=== PATIENT | female | born 1980 | race Caucasian/White ===

== ENCOUNTER 2018-10-22 22:28 | Emergency (ER) | payer OTHER, SELFPAY ==
--- NOTE | 2018-10-22 23:41 | RAD ---
Right knee 4 views HISTORY: Right knee injury. FINDINGS: Joint spaces are preserved. Mild osteophytosis. No acute fracture, dislocation, or fluid di stention of the suprapatellar bursa are apparent. IMPRESSION: No acute osseous abnormalities are demonstrated.
== END 2018-10-22 23:49 | disposition home or self-care (01) ==
LOC: ERS 22:28
DX: M25.561 Pain in right knee (principal); G40.909 Epilepsy, unspecified, not intractable, without status epilepticus; W19.XXXA Unspecified fall, initial encounter

== ENCOUNTER 2019-08-17 14:07 | Emergency (ER) | payer OTHER ==
[2019-08-17] MEDS ORDERED: Lidocaine 1% w/Epinephrine 1:100K 20 ML VIAL ONE (14:58)
== END 2019-08-17 15:53 | disposition home or self-care (01) ==
LOC: ERS 14:07
DX: S01.01XA Laceration without foreign body of scalp, initial encounter (principal); F32.9 Major depressive disorder, single episode, unspecified; G40.909 Epilepsy, unspecified, not intractable, without status epilepticus; Z79.899 Other long term (current) drug therapy; Y04.0XXA Assault by unarmed brawl or fight, initial encounter
CPT/HCPCS: 12001

== ENCOUNTER 2019-08-18 15:23 | Emergency (ER) | payer OTHER ==
[2019-08-19 15:40] LABS: SARS-CoV-2 MS2 Positive; SARS-CoV-2 N Gene Negative; SARS-CoV-2 S Gene Negative; SARS-CoV-2 orf1ab Negative
== END 2019-08-18 16:30 | disposition home or self-care (01) ==
LOC: ERS 15:23
DX: Z20.828 Contact with and (suspected) exposure to other viral communicable diseases (principal); F32.9 Major depressive disorder, single episode, unspecified; G40.909 Epilepsy, unspecified, not intractable, without status epilepticus
CPT/HCPCS: 87635; 99283; U0003

== ENCOUNTER 2019-08-25 09:20 | Emergency (ER) | payer OTHER | END 2019-08-25 09:42 | disposition home or self-care (01) | LOC: ERS 09:20 | DX: S01.01XD Laceration without foreign body of scalp, subsequent encounter (principal); X58.XXXD Exposure to other specified factors, subsequent encounter ==

== ENCOUNTER 2021-06-13 14:15 | Emergency (ER) | payer OTHER ==
[2021-06-13] MEDS ORDERED: Acetaminophen 500 MG TAB ONE ×2 (15:43)
== END 2021-06-13 16:25 | disposition home or self-care (01) ==
LOC: ERS 14:15
DX: S09.90XA Unspecified injury of head, initial encounter (principal); Y04.0XXA Assault by unarmed brawl or fight, initial encounter; Y92.009 Unspecified place in unspecified non-institutional (private) residence as the place of occurrence of the external cause
CPT/HCPCS: 70450

== ENCOUNTER 2021-11-30 08:48 | Emergency (ER) | payer OTHER ==
[2021-11-30] MEDS ORDERED: Boostrix 0.5 ML (Tdap) VIAL (>/=7 yrs of age) ONE (10:02)
== END 2021-11-30 10:21 | disposition home or self-care (01) ==
LOC: ERS 08:48
DX: S01.81XA Laceration without foreign body of other part of head, initial encounter (principal); M25.572 Pain in left ankle and joints of left foot; Z23 Encounter for immunization; W18.2XXA Fall in (into) shower or empty bathtub, initial encounter; Y93.E1 Activity, personal bathing and showering; Y92.002 Bathroom of unspecified non-institutional (private) residence as the place of occurrence of the external cause
CPT/HCPCS: 12013; 71045; 90471; 90715

== ENCOUNTER 2022-03-27 18:02 | Emergency (ER) | payer OTHER ==
[2022-03-27 18:58] LABS: #Eosinphils 0.4 thou/uL (0.0-0.7); #Lymphocytes 1.8 thou/uL (1.20-3.40); #Monocytes 0.6 thou/uL (0.11-0.59); #Neutrophils 4.3 thou/uL (1.40-6.50); %Basophils 0.5 % (0.0-1.0); %Eosinophils 5.8 % (0.0-10.0); %Monocytes 8.6 % (0.0-10.0); %Neutrophils 60.1 % (42.0-75.0); Hemoglobin 12.8 g/dL (12.0-16.0); Mean Corpuscular Hemoglobin 30.3 pg (27.0-31.0); Mean Corpuscular Volume 91.8 fl (78.0-98.0); Mean Platelet Volume 7.5 fL (7.4-10.4); Platelet Count 256 10x3/uL (130-400); RBC Distribution Width 11.5 % (11.5-14.5); Red Blood Cell (RBC) Count 4.22 mill/uL (4.20-5.40); White Blood Cell (WBC) Count 7.1 10x3/uL (4.8-10.8)
[2022-03-27 19:02] LABS: BHCG - Serum Negative (NEGATIVE); Pregs Control Background? CLEAR/WHITE (CLR/WHITE); Pregs Control Bar Appear? YES (CONTROL BAR)
[2022-03-27 19:22] LABS: ALT (SGPT) 15 U/L (8-55); AST (SGOT) 19 U/L (5-34); Albumin 3.8 g/dL (3.5-5.0); Alkaline Phosphatase 102 U/L (40-110); Anion Gap 11 mmol/L (10-20); BUN (Urea Nitrogen) 19 mg/dL (7.0-18.7); Bilirubin, Total 0.2 mg/dL (0.2-1.2); Calc. Creatinine Clearance 0 mL/min (70-130); Carbon Dioxide 24 mmol/L (22-29); Chloride 105 mmol/L (98-107); Estimated GFR 100; Globulin 3.6 g/dL (2.4-3.5); Glucose 96 mg/dL (70-105); Protein, Total 7.4 g/dL (6.0-8.3); Sodium 136 mmol/L (136-145)
== END 2022-03-27 20:20 | disposition left against medical advice (07) ==
LOC: ERS 18:02
DX: Z53.21 Procedure and treatment not carried out due to patient leaving prior to being seen by health care provider (principal)
CPT/HCPCS: 36415; 80053; 84703; 85025

== ENCOUNTER 2022-10-09 10:11 | Emergency (ER) | payer OTHER ==
[2022-10-09] MEDS ORDERED: Ketorolac Tromethamine 30 MG/ML VIAL ONE (11:03)
[2022-10-09] MEDS ORDERED: Ondansetron ODT 4 MG TAB ONE (11:03)
[2022-10-09] MEDS ORDERED: Acetaminophen 500 MG TAB ONE (11:03)
== END 2022-10-09 12:07 | disposition home or self-care (01) ==
LOC: ERS 10:11
DX: S09.90XA Unspecified injury of head, initial encounter (principal); W22.8XXA Striking against or struck by other objects, initial encounter
CPT/HCPCS: 96372; 99282; J1885; Q0162

== ENCOUNTER 2022-10-17 12:19 | Emergency (ER) | payer OTHER ==
[2022-10-17 13:35] LABS: #Eosinphils 0.4 thou/uL (0.0-0.7); #Monocytes 0.6 thou/uL (0.11-0.59); #Neutrophils 4.9 thou/uL (1.40-6.50); %Basophils 0.4 % (0.0-1.0); %Eosinophils 5.6 % (0.0-10.0); %Lymphocytes 21.8 % (21.0-51.0); %Monocytes 7.9 % (0.0-10.0); Hematocrit 39.5 % (36.0-47.0); Hemoglobin 12.7 g/dL (12.0-16.0); Mean Corpuscular HGB CONC 32.2 g/dL (32.0-36.0); Mean Corpuscular Hemoglobin 29.6 pg (27.0-31.0); Mean Corpuscular Volume 92.1 fl (78.0-98.0); Mean Platelet Volume 9.4 fL (7.4-10.4); Platelet Count 259 10x3/uL (130-400); RBC Distribution Width 12.4 % (11.5-14.5); Red Blood Cell (RBC) Count 4.29 mill/uL (4.20-5.40); White Blood Cell (WBC) Count 7.7 10x3/uL (4.8-10.8)
[2022-10-17 13:55] LABS: ALT (SGPT) 14 U/L (8-55); AST (SGOT) 19 U/L (5-34); Albumin 3.8 g/dL (3.5-5.0); Alkaline Phosphatase 109 U/L (40-110); Anion Gap 14 mmol/L (10-20); BUN (Urea Nitrogen) 14 mg/dL (7.0-18.7); Bilirubin, Total 0.2 mg/dL (0.2-1.2); Calc. Creatinine Clearance 0 mL/min (70-130); Calcium 8.9 mg/dL (7.8-10.44); Carbon Dioxide 25 mmol/L (22-29); Chloride 106 mmol/L (98-107); Estimated GFR 46; Globulin 3.3 g/dL (2.4-3.5); Glucose 86 mg/dL (70-105); Potassium 4.6 mmol/L (3.5-5.1); Protein, Total 7.1 g/dL (6.0-8.3)
[2022-10-17 14:15] LABS: Sodium 140 mmol/L (136-145)
[2022-10-17] MEDS ORDERED: Methocarbamol 500 MG TAB PO SCH (14:45)
[2022-10-17 14:59] LABS: Bilirubin Negative (Negative); Blood, Urine Trace (Negative); CAUTI Indications for Culture Pelvic or flank pain; Clarity Clear (Clear); Glucose, Urine (Dipstick) Normal (Negative); Ketone, Urine Negative (Negative); Leukocyte 25 Leu/uL (Negative); Nitrite Negative (Negative); Protein, Urine (Dipstick) 30 mg/dL (Neg-Trace); Specific Gravity, Urine 1.039 (1.002-1.036); Urobilinogen Normal mg/dL (Less than 2)
[2022-10-17 15:00] LABS: Pregnancy Test - Urine (BHCG) Negative (Negative); Pregu Control Background? CLEAR/WHITE (CLR/WHITE); Pregu Control Bar Appear? YES (CONTROL BAR); Specific Gravity 1.039 (1.002-1.036)
[2022-10-17 15:14] LABS: Bacteria/HPF 1+ HPF (None Seen)
[2022-10-17 15:15] LABS: Urine Culture Reflex No No
== END 2022-10-17 15:16 | disposition left against medical advice (07) ==
LOC: ERS 12:19
DX: S30.1XXA Contusion of abdominal wall, initial encounter (principal)
CPT/HCPCS: 36415; 74176; 80053; 81001; 81025; 85025

== ENCOUNTER 2022-10-28 10:38 | Emergency (ER) | payer OTHER ==
[2022-10-28] MEDS ORDERED: Ondansetron PF 4 MG/2 ML Vial ONE (10:42)
[2022-10-28 10:58] LABS: #Eosinphils 0.4 thou/uL (0.0-0.7); #Monocytes 0.5 thou/uL (0.11-0.59); #Neutrophils 4.1 thou/uL (1.40-6.50); %Basophils 0.3 % (0.0-1.0); %Eosinophils 6.4 % (0.0-10.0); %Lymphocytes 23.2 % (21.0-51.0); %Monocytes 8.1 % (0.0-10.0); %Neutrophils 61.7 % (42.0-75.0); Hematocrit 37.7 % (36.0-47.0); Mean Corpuscular HGB CONC 31.8 g/dL (32.0-36.0); Mean Corpuscular Volume 91.1 fl (78.0-98.0); Mean Platelet Volume 9.2 fL (7.4-10.4); Platelet Count 255 10x3/uL (130-400); RBC Distribution Width 12.4 % (11.5-14.5); Red Blood Cell (RBC) Count 4.14 mill/uL (4.20-5.40); White Blood Cell (WBC) Count 6.7 10x3/uL (4.8-10.8)
[2022-10-28 11:07] LABS: BHCG - Serum Negative (NEGATIVE); Pregs Control Background? CLEAR/WHITE (CLR/WHITE); Pregs Control Bar Appear? YES (CONTROL BAR)
[2022-10-28 11:23] LABS: ALT (SGPT) 12 U/L (8-55); AST (SGOT) 16 U/L (5-34); Albumin 3.5 g/dL (3.5-5.0); Alkaline Phosphatase 105 U/L (40-110); Anion Gap 10 mmol/L (10-20); BUN (Urea Nitrogen) 17 mg/dL (7.0-18.7); Bilirubin, Total 0.3 mg/dL (0.2-1.2); Calc. Creatinine Clearance 0 mL/min (70-130); Calcium 8.8 mg/dL (7.8-10.44); Carbon Dioxide 24 mmol/L (22-29); Chloride 108 mmol/L (98-107); Estimated GFR 85; Globulin 3.3 g/dL (2.4-3.5); Glucose 107 mg/dL (70-105); Potassium 3.8 mmol/L (3.5-5.1); Protein, Total 6.8 g/dL (6.0-8.3); Sodium 138 mmol/L (136-145)
[2022-10-28 11:24] LABS: Acetaminophen Less than 10 mcg/mL (10.0-30.0); Alcohol Less than 10.0 mg/dL (Less than 10); Salicylate Less than 8.0 mg/dL (15.0-30.0)
[2022-10-28 11:26] LABS: Troponin I Less than 0.010 ng/mL (< 0.028)
== END 2022-10-28 13:40 | disposition home or self-care (01) ==
LOC: ERS 10:38
DX: R56.9 Unspecified convulsions (principal)
CPT/HCPCS: 36415; 80053; 80307; 83605; 83735; 84484; 84703; 85025; 93005; 96374; J2405

== ENCOUNTER 2023-06-28 19:03 | Emergency (ER) | payer OTHER | END 2023-06-28 19:36 | disposition home or self-care (01) | LOC: ERS 19:03 | DX: G40.909 Epilepsy, unspecified, not intractable, without status epilepticus (principal); Z79.899 Other long term (current) drug therapy | CPT/HCPCS: 93005 ==

== ENCOUNTER 2023-11-21 10:44 | Outpatient (CLI) | payer OTHER ==
[2023-11-21 12:47] LABS: INR-International Normal Ratio 1.1; Prothrombin Time 13.8 sec (12.0-14.7)
[2023-11-21 12:48] LABS: BHCG - Serum Negative (NEGATIVE); PTT 27.6 sec (22.9-36.1); Pregs Control Background? CLEAR/WHITE (CLR/WHITE); Pregs Control Bar Appear? YES (CONTROL BAR)
[2023-11-21 13:44] LABS: #Basophils Less than 0.03 10x3/uL (0.0-0.2); %Basophils 0.2 % (0.0-1.0); %Lymphocytes 30.9 % (21.0-51.0); %Monocytes 15.2 % (0.0-10.0); %Neutrophils 46.7 % (42.0-75.0); Hematocrit 38.8 % (36.0-47.0); Hemoglobin 12.5 g/dL (12.0-16.0); Mean Corpuscular HGB CONC 32.2 g/dL (32.0-36.0); Mean Corpuscular Hemoglobin 31.3 pg (27.0-31.0); Mean Platelet Volume 10.4 fL (7.4-10.4); Platelet Adequacy Comment Platelets Decreased; Platelet Count 107 10x3/uL (130-400); RBC Distribution Width 13.7 % (11.5-14.5); RBC Morphology Within Normal Limits
== END 2023-11-21 10:45 | disposition home or self-care (01) ==
LOC: LABBT 10:44
PROVIDERS: ATTEND Neurological Surgery
DX: Z01.812 Encounter for preprocedural laboratory examination (principal); D32.9 Benign neoplasm of meninges, unspecified
CPT/HCPCS: 84703; 85025; 85610; 85730

== ENCOUNTER 2023-12-29 20:43 | Emergency (ER) | payer OTHER ==
[2023-12-29] MEDS ORDERED: Lidocaine 1% PF 5 ML VIAL ONE (22:02)
[2023-12-29] MEDS ORDERED: Lidocaine/Transparent Dressing 1 EACH KIT ONE (22:02)
== END 2023-12-29 23:20 | disposition home or self-care (01) ==
LOC: ERS 20:43
DX: S01.81XA Laceration without foreign body of other part of head, initial encounter (principal); W18.2XXA Fall in (into) shower or empty bathtub, initial encounter
CPT/HCPCS: 12011; 99282

== ENCOUNTER 2023-12-31 13:58 | Inpatient (IN) | payer OTHER ==
[2023-12-31] MEDS ORDERED: Milk Of Magnesia 30 ML UDCUP PO PRN (18:00)
[2023-12-31] MEDS ORDERED: Promethazine HCl 6.25 MG/5 ML Syrup PO PRN (18:00)
[2023-12-31 20:07] LABS: #Basophils Less than 0.03 10x3/uL (0.0-0.2); %Basophils 0.2 % (0.0-1.0); %Eosinophils 4.4 % (0.0-10.0); %Lymphocytes 23.7 % (21.0-51.0); %Neutrophils 60.5 % (42.0-75.0); Hematocrit 35.1 % (36.0-47.0); Hemoglobin 11.4 g/dL (12.0-16.0); Mean Corpuscular HGB CONC 32.5 g/dL (32.0-36.0); Mean Corpuscular Hemoglobin 32.6 pg (27.0-31.0); Mean Corpuscular Volume 100.3 fL (78.0-98.0); Mean Platelet Volume 10.5 fL (7.4-10.4); Platelet Count 116 10x3/uL (130-400); RBC Distribution Width 12.4 % (11.5-14.5)
[2023-12-31 20:21] LABS: Anion Gap 12 mmol/L (10-20); BUN (Urea Nitrogen) 19 mg/dL (7.0-18.7); Calc. Creatinine Clearance 106 mL/min (70-130); Calcium 8.1 mg/dL (7.8-10.44); Carbon Dioxide 24 mmol/L (22-29); Chloride 106 mmol/L (98-107); Estimated GFR 90; Glucose 160 mg/dL (70-105); Potassium 3.8 mmol/L (3.5-5.1); Sodium 138 mmol/L (136-145)
[2023-12-31 20:22] LABS: INR-International Normal Ratio 1.1; Prothrombin Time 14.3 sec (12.0-14.7)
[2023-12-31 20:23] LABS: PTT 26.3 sec (22.9-36.1)
[2023-12-31] MEDS: levETIRAcetam 500 MG TAB PO SCH (20:36)
[2023-12-31] MEDS: Nitrofurantoin Monohyd/M-Cryst 100 MG CAP PO SCH (20:36)
[2023-12-31] MEDS: Lacosamide 50 mg Tablet PO SCH (20:36)
[2023-12-31] MEDS: Divalproex Sodium DR 500 MG TAB PO SCH (20:36)
[2023-12-31] MEDS: QUEtiapine 100 MG TAB PO SCH (20:40)
[2023-12-31] MEDS: Acetaminophen 325 MG TAB PO PRN (20:41)
[2023-12-31] MEDS: Citalopram 20 MG TAB PO SCH (20:41)
[2023-12-31] MEDS ORDERED: Docusate 100 MG CAP PO PRN (21:00)
[2024-01-01] MEDS: Cyproheptadine 4 MG TAB PO SCH (00:34)
[2024-01-01] MEDS ORDERED: EPINEPHrine 1 MG/ML VIAL ONE (06:33)
[2024-01-01] MEDS ORDERED: Bacitracin Zinc Ointment 30 gm TUBE ONE (06:34)
[2024-01-01] MEDS ORDERED: Lidocaine 1% (PF) 30 ML VIAL ONE (06:34)
[2024-01-01] MEDS ORDERED: Vancomycin 1 GM VIAL ONE (06:34)
[2024-01-01] MEDS ORDERED: Thrombin 5000 UNITS/5 ML VIAL ONE (06:35)
[2024-01-01] MEDS ORDERED: Lidocaine 1% PF 5 ML VIAL ONE (06:38)
[2024-01-01] MEDS ORDERED: fentaNYL PF 100 MCG/2 ML SYRINGE ONE ×2 (06:38→09:00)
[2024-01-01] MEDS ORDERED: PROPOFOL 20 ML ONE ×2 (06:38→08:12)
[2024-01-01] MEDS ORDERED: Rocuronium Bromide 10 MG/ML (10ML VIAL) ONE ×3 (06:38→11:31)
[2024-01-01] MEDS ORDERED: CEFAZOLIN 2 GM VIAL ONE (07:12)
[2024-01-01] MEDS ORDERED: levETIRAcetam 500 MG (5 mL) VIAL ONE (07:14)
[2024-01-01] MEDS ORDERED: hydrALAZINE 20 MG/ML VIAL SLOW IVP PRN (07:35)
[2024-01-01] MEDS ORDERED: Benzocaine/Menthol 1 LOZ LOZ PO PRN (07:35)
[2024-01-01] MEDS ORDERED: Mag-Al 1200 mg/1200 mg/30 ML UDCUP PO PRN (07:35)
[2024-01-01] MEDS ORDERED: Labetalol HCl 100 MG/20 ML VIAL SLOW IVP PRN (07:35)
[2024-01-01] MEDS ORDERED: diphenhydrAMINE 50 MG/ML VIAL IVP PRN (07:35)
[2024-01-01] MEDS ORDERED: Promethazine HCl 25 MG/ML VIAL IM PRN ×2 (07:35→13:33)
[2024-01-01] MEDS ORDERED: Sodium Chloride 0.9% 100 ML ONE (08:34)
[2024-01-01] MEDS ORDERED: Phenylephrine 10 MG/ML VIAL ONE ×2 (08:34→11:16)
[2024-01-01] MEDS: Pantoprazole DR 40 MG TAB PO SCH (10:20)
[2024-01-01] MEDS: Ferrous Sulfate 325 MG TAB PO SCH (10:20)
[2024-01-01] MEDS: Sodium Chloride 0.9% 1,000 ML IV SCH (10:20)
[2024-01-01] MEDS ORDERED: Dexmedetomidine 200 MCG/2 ML VIAL ONE (12:08)
[2024-01-01] MEDS ORDERED: CEFAZOLIN 1 GM VIAL ONE (12:10)
[2024-01-01] MEDS ORDERED: Ondansetron PF 4 MG/2 ML Vial ONE (12:14)
[2024-01-01] MEDS ORDERED: Dexamethasone 4 mg/ml Vial ONE (12:15)
[2024-01-01 12:42] LABS: Actual Bicarbonate (HCO3a) 22.1 mEq/L (22-28); Analyzer IN Cardio OR; Base Excess (BEa) -1.8 mEq/L (-2.0 to +3.0); CO2 Tension 34.5 mmHg (35.0-45.0); Calcium, Ionized (arterial) 1.13 mmol/L (1.12-1.30); Carboxyhemoglobin (COHb) 0.3 gm% (0.0-3.0); Hematocrit-ABG 36 % (36.0-47.0); Hemoglobin (Hb) 12.1 g/dL (12.0-16.0); O2 Tension (PaO2), arterial 322.3 mmHg (80.0-100.0); Potassium - ABG Lab 3.32 mmol/L (3.70-5.30); Puncture Site Arterial Line; pH, Arterial 7.424 (7.35-7.45)
[2024-01-01] MEDS ORDERED: SUGAMMADEX SODIUM 200 MG/2 ML VIAL ONE (12:45)
[2024-01-01] MEDS ORDERED: Ondansetron HCl/PF 4 MG/2 ML Vial IVP PRN (13:33)
[2024-01-01] MEDS: Ondansetron PF 4 MG/2 ML Vial IVP PRN (15:47)
[2024-01-01] MEDS: CEFAZOLIN 2 GM in Sodium Chloride 0.9% 100 ML IVPB SCH (15:47)
[2024-01-01] MEDS: Morphine 2 MG/ML VIAL SLOW IVP PRN (15:56)
[2024-01-01] MEDS: Ondansetron PF 4 MG/2 ML Vial IVP SCH (16:30)
[2024-01-01] MEDS: Promethazine HCl 25 MG/ML VIAL IM PRN (19:31)
[2024-01-01] MEDS: hydrALAZINE 20 MG/ML VIAL SLOW IVP PRN (20:36)
[2024-01-01] MEDS: Labetalol HCl 100 MG/20 ML VIAL SLOW IVP PRN (21:24)
[2024-01-01] MEDS: levETIRAcetam 500 MG (5 mL) VIAL SLOW IVP SCH (22:18)
[2024-01-02] MEDS: Ondansetron PF 4 MG/2 ML Vial IVP PRN (07:28)
[2024-01-02] MEDS: HYDROcodone/Acetaminophen 7.5/325 mg Tablet PO PRN (09:35)
[2024-01-02] MEDS: Sodium Chloride 0.9% 1,000 ML IV SCH ×2 (16:08→16:22)
[2024-01-02 17:25] LABS: Lactic Acid 2.71 mmol/L (0.5-2.2)
[2024-01-02 17:31] LABS: ALT (SGPT) 8 U/L (8-55); AST (SGOT) 16 U/L (5-34); Alkaline Phosphatase 45 U/L (40-110); Anion Gap 10 mmol/L (10-20); BUN (Urea Nitrogen) 7 mg/dL (7.0-18.7); Bilirubin, Total 0.4 mg/dL (0.2-1.2); Calc. Creatinine Clearance 126 mL/min (70-130); Calcium 7.2 mg/dL (7.8-10.44); Carbon Dioxide 24 mmol/L (22-29); Chloride 110 mmol/L (98-107); Estimated GFR 111; Globulin 2.4 g/dL (2.4-3.5); Glucose 126 mg/dL (70-105); Potassium 3.6 mmol/L (3.5-5.1); Protein, Total 4.4 g/dL (6.0-8.3); Sodium 140 mmol/L (136-145)
[2024-01-02 17:42] LABS: #Basophils Less than 0.03 10x3/uL (0.0-0.2); #Eosinophils Less than 0.03 10x3/uL (0.0-0.7); %Basophils 0.1 % (0.0-1.0); %Eosinophils 0.1 % (0.0-10.0); %Lymphocytes 12.4 % (21.0-51.0); %Monocytes 17.7 % (0.0-10.0); %Neutrophils 69.3 % (42.0-75.0); Hematocrit 24.6 % (36.0-47.0); Hemoglobin 7.9 g/dL (12.0-16.0); Mean Corpuscular HGB CONC 32.1 g/dL (32.0-36.0); Mean Corpuscular Hemoglobin 32.2 pg (27.0-31.0); Mean Corpuscular Volume 100.4 fL (78.0-98.0); Mean Platelet Volume 10.2 fL (7.4-10.4); Platelet Count 92 10x3/uL (130-400); RBC Distribution Width 12.2 % (11.5-14.5); Red Blood Cell (RBC) Count 2.45 mill/uL (4.20-5.40)
[2024-01-02 18:05] LABS: Hypochromia SLIGHT = 6-15 cells HPF (0-5); Macrocytosis SLIGHT = 6-15 cells HPF (0-5); Platelet Adequacy Comment Platelets Decreased; Polychromasia SLIGHT = 2-3 cells HPF (0-2)
[2024-01-02] MEDS: Vancomycin (BATCH) 2 GM in Premix 1 BAG IVPB SCH (18:13)
[2024-01-02 18:17] LABS: Bacteria/HPF None Seen HPF (None Seen); Bilirubin Negative (Negative); Blood, Urine Negative (Negative); Clarity Clear (Clear); Glucose, Urine (Dipstick) Normal (Negative); Ketone, Urine Negative (Negative); Leukocyte 75 Leu/uL (Negative); Nitrite Negative (Negative); Protein, Urine (Dipstick) Negative (Neg-Trace); RBC/HPF 0-3 HPF (0-3); Specific Gravity, Urine 1.004 (1.002-1.036); Squamous Epithelial None Seen HPF (0-3); pH, Urine 6.5 (5.0-9.0)
[2024-01-02] MEDS: Cefepime 2 GM in Sodium Chloride 0.9% 100 ML IVPB SCH (19:36)
[2024-01-02] MEDS: Potassium Chloride 20 MEQ in Lactated Ringer's 1,000 ML IV SCH (22:25)
[2024-01-03 04:11] LABS: #Basophils Less than 0.03 10x3/uL (0.0-0.2); #Eosinophils Less than 0.03 10x3/uL (0.0-0.7); %Basophils 0.2 % (0.0-1.0); %Eosinophils 0.1 % (0.0-10.0); %Lymphocytes 11.6 % (21.0-51.0); %Monocytes 14.4 % (0.0-10.0); %Neutrophils 73.2 % (42.0-75.0); Hemoglobin 8.1 g/dL (12.0-16.0); Mean Corpuscular HGB CONC 32.4 g/dL (32.0-36.0); Mean Corpuscular Hemoglobin 32.4 pg (27.0-31.0); Mean Platelet Volume 10.2 fL (7.4-10.4); Platelet Count 94 10x3/uL (130-400); RBC Distribution Width 12.2 % (11.5-14.5)
[2024-01-03 04:27] LABS: Anion Gap 8 mmol/L (10-20); BUN (Urea Nitrogen) 5 mg/dL (7.0-18.7); Calc. Creatinine Clearance 126 mL/min (70-130); Calcium 7.6 mg/dL (7.8-10.44); Carbon Dioxide 24 mmol/L (22-29); Chloride 108 mmol/L (98-107); Estimated GFR 113; Glucose 125 mg/dL (70-105); Potassium 3.7 mmol/L (3.5-5.1); Sodium 136 mmol/L (136-145); Vancomycin, Trough 16.4 ug/mL
[2024-01-03] MEDS: Vancomycin HCl 750 MG in Sodium Chloride 0.9% 250 ML 250 ML IVPB SCH (09:36)
[2024-01-03] MEDS ORDERED: Morphine 4 MG/ML VIAL SLOW IVP PRN (20:24)
[2024-01-03] MEDS ORDERED: Albumin 25% 25 GM (100 mL) BOT IVPB SCH ×2 (20:30→23:59)
[2024-01-04] MEDS: Potassium Chloride 20 MEQ in Lactated Ringer's 1,000 ML IV SCH (00:30)
[2024-01-04 06:12] LABS: #Basophils Less than 0.03 10x3/uL (0.0-0.2); %Basophils 0.3 % (0.0-1.0); %Eosinophils 1.5 % (0.0-10.0); %Lymphocytes 16.1 % (21.0-51.0); %Monocytes 11.1 % (0.0-10.0); %Neutrophils 70.5 % (42.0-75.0); Hematocrit 25.1 % (36.0-47.0); Hemoglobin 8.2 g/dL (12.0-16.0); Mean Corpuscular HGB CONC 32.7 g/dL (32.0-36.0); Mean Corpuscular Hemoglobin 32.4 pg (27.0-31.0); Mean Corpuscular Volume 99.2 fL (78.0-98.0); Mean Platelet Volume 10.1 fL (7.4-10.4); Platelet Count 116 10x3/uL (130-400); RBC Distribution Width 11.6 % (11.5-14.5); Red Blood Cell (RBC) Count 2.53 mill/uL (4.20-5.40)
[2024-01-04] MEDS: Senokot S 8.6-50 MG TAB PO SCH (08:50)
[2024-01-04] MEDS: Multivit, Therapeutic 1 TAB PO SCH (19:49)
[2024-01-04] MEDS: Folic Acid 1 MG TAB PO SCH (19:50)
[2024-01-05 03:42] LABS: #Basophils Less than 0.03 10x3/uL (0.0-0.2); %Basophils 0.2 % (0.0-1.0); %Eosinophils 1.2 % (0.0-10.0); %Lymphocytes 21.9 % (21.0-51.0); %Neutrophils 63.3 % (42.0-75.0); Hematocrit 25.2 % (36.0-47.0); Hemoglobin 8.4 g/dL (12.0-16.0); Mean Corpuscular HGB CONC 33.3 g/dL (32.0-36.0); Mean Corpuscular Hemoglobin 32.4 pg (27.0-31.0); Mean Corpuscular Volume 97.3 fL (78.0-98.0); Mean Platelet Volume 9.6 fL (7.4-10.4); Platelet Count 147 10x3/uL (130-400); RBC Distribution Width 11.4 % (11.5-14.5); Red Blood Cell (RBC) Count 2.59 mill/uL (4.20-5.40)
[2024-01-05 04:46] LABS: Vancomycin, Random 22.7 ug/mL (See Comment)
[2024-01-05 04:49] LABS: Anion Gap 13 mmol/L (10-20); BUN (Urea Nitrogen) 4 mg/dL (7.0-18.7); Calc. Creatinine Clearance 0 mL/min (70-130); Calcium 8.4 mg/dL (7.8-10.44); Carbon Dioxide 25 mmol/L (22-29); Chloride 106 mmol/L (98-107); Estimated GFR 112; Glucose 97 mg/dL (70-105); Magnesium 1.9 mg/dL (1.6-2.6); Potassium 3.7 mmol/L (3.5-5.1); Sodium 140 mmol/L (136-145)
[2024-01-07] MEDS: Sodium Chloride 0.9% 500 ML IV SCH (15:35)
[2024-01-09 05:59] VITALS: BMI 28.0
[2024-01-10 11:10] VITALS: BMI 28.0
[2024-01-11 08:36] VITALS: BP 97/68; TEMP 98.3
== END 2024-01-11 11:09 | DRG 26 ==
LOC: SURG A 15:24 → CCU 01-01 12:40 → SURG A 01-03 22:03
PROVIDERS: ADMIT Neurological Surgery; ATTEND Neurological Surgery
PROC: 00B00ZZ Excision of Brain, Open Approach (ICD-10-PCS; principal; 2024-01-01)
PROC: 009U3ZZ Drainage of Spinal Canal, Percutaneous Approach (ICD-10-PCS; 2024-01-01)
DX: D32.0 Benign neoplasm of cerebral meninges (principal); D62 Acute posthemorrhagic anemia; G40.909 Epilepsy, unspecified, not intractable, without status epilepticus; R62.50 Unspecified lack of expected normal physiological development in childhood; I95.81 Postprocedural hypotension; D69.6 Thrombocytopenia, unspecified; F39 Unspecified mood [affective] disorder
CPT/HCPCS: 36415; 70450; 71045; 80048; 80053; 80202; 81001; 82533; 82805; 83605; 83735; 84443; 85025; 85610; 85730; 87040; 87086; 88307; 88341; 88342; 88360; C1713; C1876; C1889; J0171; J0360; J0690; J0692; J1100; J1953; J2272; J2371; J2405; J2550; J2704; J3370; J3480; J7030; J7050; J7120

== ENCOUNTER 2024-11-17 13:01 | Emergency (ER) | payer OTHER ==
[2024-11-17] MEDS ORDERED: HYDROcodone/Acetaminophen 10/325 mg Tablet ONE (14:11)
== END 2024-11-17 14:23 | disposition home or self-care (01) ==
LOC: ERS 13:01
DX: S93.401A Sprain of unspecified ligament of right ankle, initial encounter (principal); W01.0XXA Fall on same level from slipping, tripping and stumbling without subsequent striking against object, initial encounter
CPT/HCPCS: 99283